=== PATIENT | male | born 1980 | race Caucasian/White ===

== ENCOUNTER 2017-10-26 23:10 | Emergency (ER) | payer SELFPAY ==
--- NOTE | 2017-10-26 23:42 | ED Physician Documentation ---
General Adult - HISTORIAN Historian: patient - HPI Stated Complaint: lightheaded Chief Complaint: General Adult Additional Information: At home, walked up stairs and kissed his sleeping children adelfo. Noticed tightness in left shoulder, radiated up neck and into chest. [place] light headed. [place] the blood drain from his lips and his heart rate increased. Lasted a few minutes. HX HTN. Stopped enalapril 2 weeks ago. Used to take 10 mg BID and for the last year had been taking 10 mg daily. Says he and his provide had discussed stopping enalapril altogether but he hadn't seen provider in 5-6 months. BP lately has been 140/95. Is evasive as to how often he checks BP; perhaps once a week. Is sure he knows when BP is high and can control it with relaxation. Says he has had anxiety in the past but medication made IBANEZ's worse so he stopped it. No other modifying factors or associated signs. - ROS CONST: denies: fever - PAST HX Past History: hypertension, other (anxiety) Allergies/Adverse Reactions: Allergies Allergy/AdvReac Type Severity Reaction Status Date / Time No Known Drug Allergies Allergy Unverified 02/27/15 13:45 - SOCIAL HX Smoking History: non-smoker Alcohol Use: none Drug Use: marijuana - FAMILY HX Family History: Yes (M with heart disease in 30's, ovarian ca, lung cancer. F with MS, HTN. ) - REVIEWED ASSESSMENTS Nursing Assessment Reviewed: Yes Vitals Reviewed: Yes Progress - Progress Progress: EKG, sinus rhythm, rate 97, no ischemic changes Report Submission Date: Oct 26, 2017 11:45:39 PM CDT Patient Study Name: MITA BERRY Date: Oct 26, 2017 11:17:07 PM CDT Modality Type: DX Gender: M Description: CHEST : 76 Institution: [facility] Physician: SEGUN HERNÁNDEZ - DOMI Portable chest Clinical history: Chest pain and tightness. Findings: Examination of the chest single portable AP view with no prior films for comparison demonstrates the lungs to be clear. Cardiovascular and mediastinal silhouettes are within normal limits. Monitor leads superimpose the chest. Impression: 1. Negative chest. Electronically signed on Oct 26, 2017 11:45:39 PM CDT by: Calixto [place] [facility], including serial Trop I's, reassuring. CXR and EKG unremarkable. Had him tale 10 mg Enalapril in ER. BP at rest. 147/96. To follow up in clinic int the next 5-10 days. ED Results Lab/Radiology - Orders Orders: ED Orders Category Date Time Status Continuous EKG monitoring Q1H Care 10/26/17 23:[address] IV Lock 1T Care 10/26/17 23:35 Ordered CHEST 1VIEW [RAD] Stat Exams 10/26/17 Taken CBC/PLATELET/DIFF Routine Lab 10/26/17 Ordered CMP Routine Lab 10/26/17 Ordered TROPONIN I (cTnI) Stat Lab 10/26/17 Ordered URINALYSIS Routine Lab 10/26/17 Ordered EKG WITH COMPARISON Stat Ther 10/26/17 Ordered General Adult Physical Exam - PHYSICAL EXAM GENERAL APPEARANCE: very talkative EENT: eye inspection normal, ENT inspection normal, pharynx normal (Mallampati 2 ), no nystagmus NECK: normal inspection, supple, other (non tender, no spasm detected) RESPIRATORY: breath sounds normal CVS: reg rate & rhythm, heart sounds normal, no murmur, other (Mark radial and PT 's 2+) ABDOMEN: soft, normal bowel sounds BACK: normal inspection, no CVA tenderness, other (no vertebral tenderness) SKIN: warm/dry, normal color EXTREMITIES: no evidence of injury, no edema NEURO: CN's nml as tested, motor nml, sensation nml Discharge Clincal Impression: Episodic lightheadedness Hypertension Qualifiers: Hypertension type: unspecified Qualified Code(s): I10 - Essential (primary) hypertension Referrals: Primary Doctor,No [Primary Care Provider] - 2 Days Condition: Good Disposition: 01 HOME, SELF-CARE Decision to Admit: NO Decision Time: 02:15
[2017-10-26 23:50] LABS: BASOPHILS % 0.7 (0.0-1.5); EOSINOPHILS % 2.8 % (0.0-6.8); MEAN CORPUSCULAR HEMOGLOBIN 31.2 pg (28.0-34.0); MEAN CORPUSCULAR VOLUME 88.3 fl (80.0-100.0); MONOCYTES % 5.9 % (0.0-11.0); NEUTROPHILS # 2.7 # k/uL (1.4-7.7)
[2017-10-27 00:09] LABS: eGFR (African) > 60; eGFR (Non-African) > 60
[2017-10-27 02:44] VITALS: BP 158/101
--- NOTE | 2017-10-27 06:18 | Diagnostic Imaging Report ---
SEGUN HERNÁNDEZ [facility] [address] [facility] [address] [address] Report Submission Date: Oct 26, 2017 11:45:39 PM CDT Patient Study Name: MITA BERRY Date: Oct 26, 2017 11:17:07 PM CDT Modality Type: DX Gender: M Description: CHEST : 76 Institution: [facility] Physician: SEGUN HERNÁNDEZ Portable chest Clinical history: Chest pain and tightness. Findings: Examination of the chest single portable AP view with no prior films for comparison demonstrates the lungs to be clear. Cardiovascular and mediastinal silhouettes are within normal limits. Monitor leads superimpose the chest. Impression: 1. Negative chest. Electronically signed on Oct 26, 2017 11:45:39 PM CDT by: Calixto SKINNER
[2017-10-27 08:24] LABS: APPEARANCE,URINE CLEAR (CLEAR); COLOR,URINE YELLOW (YELLOW)
[2017-10-27 08:25] LABS: OCCULT BLOOD,URINE NEGATIVE (NEGATIVE); UROBILINOGEN URINE 0.2 Eu (0.2-1.0)
== END 2017-10-27 02:26 | disposition home or self-care (01) ==
LOC: SUPCPDRO 23:10 → ED 23:10
DX: R42 Dizziness and giddiness (principal); I10 Essential (primary) hypertension
CPT/HCPCS: 71045; 80053; 81002; 84484; 85025; 99284; S1016